=== PATIENT | male | born 1955 | race Caucasian/White ===

== ENCOUNTER 2025-03-25 09:43 | Emergency (ER) | payer MEDICARE, SELFPAY ==
[2025-03-25 09:56] VITALS: BP 155/85; PULSE 64; RESP 18; TEMP 37.1; O2SAT 97; BMI 29.7
--- OUTSIDE RECORDS SUMMARY | 2025-03-25 10:05 | XMS_ITS | Encounter Summary ---
Author Organization [facility] enter Address [address] [place] [address] Phone Care Team Providers Care Bilingual Teacher Assistant Name Role Phone Sd Espinosa Primary Care Provider [phone] Reason for Visit * Reason Comments Appointment Info XR PRIOR needed Encounter Details Date Type Department Care Team ([facility] st Contact Info) Description 02/10/2025 Telephone [facility] - Podiatry Clinic [address] [place] [address] Jean Carlos Gallegos, DPM [address] [place], [place] [id number] Social History Tobacco Use Types Packs/Day Years Used Date Smoking Tobacco: Former Cigarettes 0.7 S tarted: 07/19/2024 Smokeless Tobacco: Current Chew Abuse Risk Answer Date Recorded Are you in an UNsafe relationship? No 02/12/2025 Does your partner/boyfriend or girlfriend hit, kick, hurt, or threaten you? No 02/12/2025 Have you suffered any injury as a result of abuse in the past year? No 02/12/2025 Does your partner/boyfriend or girlfriend ever try to control you by threatening you or your family? No 025 Are you currently being forc ed to engage in sexual activity? No 02/12/2025 Are you being abused or thre atened in your work or home environment? No 02/12/2025 Are you being forced to work? No Is the patient a d ependent adult ? Does not apply 02/12/2025 Do you feel unsafe at home? No 01/20 Has anyone tried to force yo u to sign papers or to use your money against your will? No 02/12/2025 Sex and Gender Information Value Date Recorded Sex Assigned at Not on file Legal Sex Male 7:06 AM CDT Gender Identity Not on file Sexual Orientation Not on file documented as of this encounter Functional Status * Calculated C-SSRS Risk Score (Lifetime/Recent) Answer Date of Assessment Author No Risk Indicated 02/12/2025 10:19 AM CDT System User, Clinical Documentation * [place] Suicide Severity Rating Scale (Screener/Recent Self-Report) Question Answer Date of Assessment Author 1. Wish to be (Past 1 Month) No 02/12/2025 10:19 AM CDT Kathy Stephens, INSURANCE PROFESSIONAL, AAMA 2. Non-Specific Active Suicidal Thoughts (Past 1 Month) No 02/12/2025 10:19 AM CDT Kathy Stephens, INSURANCE PROFESSIONAL, AAMA 6. Suicidal Behavior (Lifetime) No 02/12/2025 10:19 AM CDT Kathy Stephens, INSURANCE PROFESSIONAL, AAMA documented as of this encounter Miscellaneous Notes * Telephone Encounter - Sofie Betancourt - 02/11/2025 8:49 AM CDT This has been completed. * Telephone Encounter - Luann Bhakta RN - 02/10/2025 5:16 PM CDT Patient is currently scheduled to see Dr. Gallegos on , 02/12/25 for a left foot fracture follow-up appointment. Please call the patient and let him know that Dr. Gallegos would like to have him complete xray prior to his appointment. Please update the appointment reason line to include XR PRIOR and then update the appointment arrival time. A left foot xray order has been placed. Thanks! Ena Bhakta Podiatry RN documented in this encounter Plan of Treatment Not on file documented as of this encounter Visit Diagnoses Not on filedocumented in this encounter Additional Health Concerns Assessment Noted Time A fall risk assessment has been complete d for the patient 01/16/2025 11:24 AM CDT documented as of this encounter Care Teams Bilingual Teacher Assistant Relationship Specialty Start Date End Date Sd Espinosa [address] [place] [address] PCP - General Family Practice 10/26/17 documented as of this encounter
--- OUTSIDE RECORDS SUMMARY | 2025-03-25 10:06 | XMS_ITS | Encounter Summary ---
Author Organization [facility] enter Address [address] [place] [address] Phone Care Team Providers Care Casting Chipper Name Role Phone Sd Espinosa Primary Care Provider [phone] Reason for Referral * Radiology Services (Routine) - Pending Review Specialty Diagnoses / Procedures Referred By Ramonaac t Referred To Contact Radiology Procedures [facility] EXT XR STORE ONLY Default, [facility] Provider [place] Phone: tel: Referral ID Status Reason Start Date Expiration Date V isits Requested Visits Authorized [id number] Pending Review 11/18/2024 1 1 Electronically signed by Default, [facility] Provider at 11/18/2024 9:40 AM CDT Encounter Details Date Type Department Care Team (Late st Contact Info) Description 11/18/2024 Ancillary Orders [facility] - Radiology [address] [place] [address] Default, [facility] Provider [place] Social History Tobacco Use Types Packs/Day Years Used Date Smoking Tobacco: Every Day Cigarettes Smokeless Tobacco: Current Chew Abuse Risk Answer Date Recorded Are you in an UNsafe relationship? Not on file 07/30/2023 Does your partner/boyfriend or girlfriend hit, kick, hurt, or threaten you? Not on file 07/30/2023 Have you suffered any injury as a result of abuse in the past year? Not on file 07/30/2023 Does your partner/boyfriend or girlfriend ever try to control you by threatening you or your family? Not on file 024 Are you currently being forc ed to engage in sexual activity? Not on file 07/30/2023 Are you being abused or thre atened in your work or home environment? Not on file 07/30/2023 Are you being forced to work? Not on file Is the patient a d ependent adult ? Does not apply 07/30/2023 Do you feel unsafe at home? Not on file 07/19 Has anyone tried to force yo u to sign papers or to use your money against your will? Not on file 07/30/2023 Sex and Gender Information Value Date Recorded Sex Assigned at Not on file Legal Sex Male 7:06 AM CDT Gender Identity Not on file Sexual Orientation Not on file documented as of this encounter Plan of Treatment Not on file documented as of this encounter Results * [facility] EXT XR STORE ONLY (10/27/2024 12:00 AM CDT) Narrative [facility] RADIOLOGY - 11/18/2024 9:40 AM CDT This is an external imaging result scanned into the patient's chart. This exam was not read by [facility] internal Reading Physicians. us [facility] Provider Default [facility] RAD EXTERNAL IMAGES Fi nal Result [facility] RADIOLOGY documented in this encounter Visit Diagnoses Not on filedocumented in this encounter Care Teams Casting Chipper Relationship Specialty Start Date End Date Sd Espinosa [address] [place] [address] PCP - General Family Practice 10/26/17 documented as of this encounter
--- OUTSIDE RECORDS SUMMARY | 2025-03-25 10:06 | XMS_ITS | Encounter Summary ---
Author Organization [facility] [employer] enter Address [address] [place] [address] Phone Care Team Providers Care Gun Fitter Name Role Phone Sd Espinosa Primary Care Provider [phone] Reason for Referral * Radiology Services (Routine) - Closed Specialty Diagnoses / Procedures Referred By Contac t Referred To Contact Radiology Diagnoses Localized edema Procedures [facility] US VENOUS DOPPLER LEG RIGHT ([id number]) Sd Espinosa [address] [place] [id number] Phone: tel:[phone] fax: Referral ID Status Reason Start Date Expiration Date Visits Re quested Visits Authorized [id number] Closed 03/28/2023 1 1 REFINERY SUPERVISOR Encounter Details Date Type Department Care Team (Late st Contact Info) Description 03/28/2023 Ancillary Orders [facility] - Radiology [place] [address] [place] [address] Sd Espinosa [address] [place] [id number] Social History Tobacco Use Types Packs/Day Years Used Date Smoking Tobacco: Every Day Cigarettes Smokeless Tobacco: Current Chew Sex and Gender Information Value Date Recorded Sex Assigned at Not on file Legal Sex Male 7:06 AM CDT Gender Identity Not on file Sexual Orientation Not on file documented as of this encounter Plan of Treatment Not on file documented as of this encounter Results * [facility] US VENOUS DOPPLER LEG RIGHT ([id number]) (03/28/2023 4:06 PM LEAD REFINERY SUPERVISOR) Anatomical Region Laterality Modality lower extremity Ultrasound 03/28/2023 4:19 PM LEAD REFINERY SUPERVISOR Impressions 03/28/2023 4:19 PM LEAD REFINERY SUPERVISOR IMPRESSION: 1. Negative for DVT right leg. Signed By: Jacob Remark on 16:19:04 Narrative 03/28/2023 4:19 PM LEAD REFINERY SUPERVISOR PROCEDURE: [facility] US VENOUS DOPPLER LEG RIGHT ([id number]) CLINICAL INDICATION: edema of lower extremity COMPARISON: No comparison available. FINDINGS: Ultrasound examination of the right leg demonstrates normal color Doppler venous flow, compressibility, and augmentation in the deep veins of the right leg. No findings or changes for acute deep venous thrombosis right leg. Procedure Note Remark, MD Jacob - 03/28/2023 PROCEDURE: [facility] US VENOUS DOPPLER LEG RIGHT ([id number]) CLINICAL INDICATION: edema of lower extremity COMPARISON: No comparison available. FINDINGS: Ultrasound examination of the right leg demonstrates normal color Doppler venous flow, compressibility, and augmentation in the deep veins of the right leg. No findings or changes for acute deep venous thrombosis right leg. IMPRESSION IMPRESSION: 1. Negative for DVT right leg. Signed By: Jacob Remark on 16:19:04 Sd Espinosa [facility] US Final Result documented in this encounter Visit Diagnoses Diagnosis Localized edema- Primary Edema Localized edema Edema documented in this encounter Care Teams Gun Fitter Relationship Specialty Start Date End Date Sd Espinosa [address] [facility] [place] [address] PCP - General Family Practice 10/26/17 documented as of this encounter
--- OUTSIDE RECORDS SUMMARY | 2025-03-25 10:06 | XMS_ITS | Clinical Summary ---
Author Organization [employer] Address [address] [place] [address] Care Team Providers Care Speed Reading Teacher Name Role Phone Sd Espinosa MD Primary Care Provider [phone] Source Comments If you need additional information that is not available on Care Everywhere, please contact our Medical Records Department during business hours (Sunday - Sunday, 8 am - 5 pm) at . During nonbusiness hours, please contact our Trauma and Emergency Center at .[facility] and [facility] Allergies No known active allergies Medications * Medications may not be up to date as of this document. Always verify current medications with the patient. lisinopril (PRINIVIL;ZESTR IL-EQUIVALENT) 10 mg tablet Take 10 mg by mouth bedtime. Active simvastatin (ZOCOR) 20 mg tablet Take 20 mg by mouth every evening. Active aspirin EC 81 mg enteric coated tablet Take 81 mg by mouth bedtime. Active insulin NPH-regular (NOVOLIN;HUMULI N 70-30) pen injection Inject under skin 2 times daily before meals Takes 35-40 units in the AMs and 30 units in PM. Active PEG electrolyte (GOLYTELY) 236-22.74-6.74 -5.86 gram solutionIndicat ions:bowel evacuation Follow prep instructions given in clinic. Call with questions. For: Bowel Evacuation. 4000 mL 8 Active Active Problems Problem Noted Date Diagnosed Date H/O adenomatous polyp of colon 11/02/2017 Benign essential HTN Type 2 diabetes mellitus wit hout complication, with long-term current use of insulin Hyperlipidemia Encounters Date Type Department Care Team Description 12/31/2024 Interface [facility] [address] [place] [address] Octaviano Ceja MD 12/31/2024 Travel from Last 3 Months Surgical History Surgery Date Site/Laterality Comments TYMPANOSTOMY Left tube COLONOSCOPY 08/18/2005 Zach @ [facility]. hyperplastic COLONOSCOPY 10/26/2017 repeat in 5 years-[facility] Medical History Medical History Date Comments Sciatica Hyperlipidemia Benign essential HTN Humerus fracture 09/24/1995 right mid shaft closed reduction Nondisplaced fracture 06/04/1994 L2-3 and a vulsion of L-4 Ketoacidosis 08/12/2012 hospitalized @ [facility] Alcohol abuse Diabetes mellitus (*) Family History Medical History Relation Name Comments No Major Problems Brother No Major Problems Daughter Lung Disease Father Hypercholesterolemia Mother Diabetes Paternal Grandfather type 2 Crohn's Disease Sister 1 No Major Problems Sister 2 No Major Problems Sister 3 No Major Problems Sister 4 No Major Problems Son Relation Name Status Comments Brother Alive Daughter Alive Father Mother Alive Paternal Grandfather Sister 1 Alive Sister 2 Alive Sister 3 Alive Sister 4 Alive Son Alive Social History Tobacco Use Types Packs/Day Years Used Date Smoking Tobacco: Every Day Cigarettes 0.5 42 Smokeless Tobacco: Current Chew Comments:and 3 cans of chew per week Alcohol Use Standard Drinks/Week Comments Yes 6 (1 standard drink = 0.6 oz pur e alcohol) H/O of abuse Sex and Gender Information Value Date Recorded Sex Assigned at Not on file 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 Gender Identity Not on file Sexual Orientation Not on file 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 Not on file Not on file Not on fbaian e Obstetrics History Last Filed Vital Signs Vital Sign Reading Time Taken Comments Blood Pressure 140/86 10/08/2017 2:42 PM CDT Pulse 100 10/08/2017 2:40 PM CDT Temperature - - Respiratory Rate 16 10/08/2017 2:40 PM CDT Oxygen Saturation - - Inhaled Oxygen Concentration - - Weight 99.1 kg (218 lb 8 oz) 10/08/2017 2:40 PM CDT Height 177.8 cm (5' 10 ) 10/08/2017 2:40 PM CDT Body Mass Index 31.35 10/08/2017 2:40 PM CDT Plan of Treatment Health Maintenance Due Date Last Done Comments CBC (Diabetes) 1955 Creatinine/eGFR 1955 Hepatitis C Screening 1955 Lipid Monitoring 1955 Potassium 1955 Sodium 1955 Depression/Anxiety PHQ4 1967 ALT Chronic Disease Monitoring 1973 Albumin to Creatinine Ratio 1973 Diabetes Education 1973 Diabetic Eye Exam 1973 Diabetic Foot Exam [address] Colonography 2000 Cologuard 2000 FIT Test 2000 Sigmoidoscopy 2000 RSV Vaccines (1 - Risk 50-74 years 1-dose series) 2005 Shingles Vaccine (Zoster) (2 of 2) 04/05/2021 02/08/2021 Colonoscopy 10/26/2022 10/26/2017 Colorectal Cancer Screening 10/26/2022 COVID-19 Vaccine (4 - season) 2025 04/19/2021, 09/22/2020, 08/25/2020 Influenza Vaccine (#1) 2025 , 04/06/2022, 02/08/2021, Additional history exists Pneumococcal Vaccine: 50+ Years (3 of 3 - PCV20 or PCV21) 02/08/2026 02/08/2021, 12/02/2015, 08/13/2012 DTaP/Tdap/Td Vaccine (3 - Td or Tdap) 03/07/2033 03/07/2023, 11/07/2010, 08/10/2004 Pneumococcal Vaccine: Pediatrics (0 to 5 Years) and At-Risk Patients (6 to 49 Years) Discontinued 02/08/2021, 12/02/2015, 08/13/2012 HEPATITIS A Aged Out No longer eligi ble based on patient's age to complete this topic HIB Vaccine Aged Out No longer eligi ble based on patient's age to complete this topic HPV Vaccine Aged Out No longer eligi ble based on patient's age to complete this topic Hepatitis B Vaccine Aged Out No longe r eligible based on patient's age to complete this topic Meningococcal B Vaccine Aged Out No l onger eligible based on patient's age to complete this topic Meningococcal Vaccine (MenACWY) Aged Out No longer eligible based on patient's age to complete this topic Rotavirus Vaccine Aged Out No longer eligible based on patient's age to complete this topic Insurance [facility] MEDICARE PFFS/HMO - LOCAL PLAN Care Teams Speed Reading Teacher Relationship Specialty Start Date End Date Sd Espinosa MD [address] [place], [place] [id number] [phone] PCP - General Family Medicine 09/13/17
--- OUTSIDE RECORDS SUMMARY | 2025-03-25 10:06 | XMS_ITS | Clinical Summary ---
Author Organization [employer] enter Address [address] [place] [address] Phone Care Team Providers Care Caretaker Name Role Phone Sd Espinosa Primary Care Provider [phone] Source Comments This disclosure is being made pursuant to the Care Everywhere program,applicable federal and state laws, and may not contain all informationavailable regarding this patient.[facility] and [facility] Practices Allergies No known active allergies Medications aspirin 81 mg enteric coated tablet Take 81 mg by mouth at bedtime. Active insulin nph-regular (HumuLIN 70/30) 100 unit/mL (3 mL) injection pen Inject under skin 2 times daily before meals, 30-40 units in the am and 30 units in pm Active lisinopril 10 mg tablet Take 10 mg by mouth at bedtime. Active simvastatin 20 mg tablet Take 20 mg by mouth every evening. Active BASAGLAR KWIKPEN 100 unit/mL (3 mL) injection pen Inject 34 units subcutaneously daily. INJECT 34 UNITS SUBCUTANEOUSLY IN THE MORNING 5 Active NovoLOG Flexpen U-100 Insulin 100 unit/mL (3 mL) injection pen Inject 10 units subcutaneously 3 times daily before meals. INJECT 10 UNITS SUBCUTANEOUSLY THREE TIMES DAILY FOR DIABETES 5 Active furosemide 40 mg tablet Take 1 tablet (40 mg total) by mouth daily. 5 Active FREESTYLE MADHU 2 SENSOR FREESTY LIBR KIT 2 SENSOR 5 Active atorvastatin (LIPITOR) 40 mg tablet Take 1 tablet (40 mg total) by mouth every evening. 5 Active amLODIPine (NORVASC) 5 mg tablet Take 1 tablet (5 mg total) by mouth daily. 5 Active FREESTYLE AMDHU 2 PLUS SENSOR 5 Active Active Problems Problem Noted Date Diagnosed Date Benign essential HTN 11/18/2024 Cholesterolosis of gallbladder 11/18/2024 Hyperlipidemia 11/18/2024 Hypertension 11/18/2024 Type 2 diabetes mellitus wit hout complication, with long-term current use of insulin 11/18/2024 H/O adenomatous polyp of colon 11/02/2017 Encounters Date Type Department Care Team Description 02/12/2025 10:20 AM CDT Office Visit [facility] - Podiatry Clinic [address] [place] [address] Jean Carlos Gallegos, DPM 02/12/2025 9:45 AM CDT - 02/12/2025 11:59 PM CDT Hospital Encounter [facility] - Radiology XRAY [address] [place] [address] Jean Carlos Gallegos, DPM Discharge Disposition: Home or Self Care 02/12/2025 Travel 02/10/2025 Telephone [facility] - Podiatry Clinic [address] [place] [id number] Jean Carlos Gallegos, DPM 01/20/2025 Telephone [facility] - Orthopedic Clinic [address] [place] [address] Jean Carlos Gallegos, DPM 01/16/2025 11:20 AM CDT Office Visit [facility] - Podiatry Clinic [address] [place] [address] Jean Carlos Gallegos, DPM 01/16/2025 Travel 01/16/2025 Telephone [facility] - Podiat[facility] [address] [place] [address] Jean Carlos Gallegos, DPM 12/30/2024 9:00 AM CDT Office Visit [facility] - Podiatry Clinic [address] [place] [address] Jean Carlos Gallegos, DPM 12/30/2024 8:25 AM CDT - 12/30/2024 11:59 PM CDT Hospital Encounter [facility] - Radiology XRAY [address] [place] [address] Jean Carlos Gallegos, DPCharles Discharge Disposition: Home or Self Care 12/30/2024 Travel from Last 3 Months Immunizations Immunization Administration Dates Next Due COVID-19, mRNA (MODERNA) 100mcg/0.5mL 04/19/2021 ,09/22/2020,08/25/2020 Influenza 02/19/2014 Influenza, PF 02/20/2024 Influenza, quadrivalent PF 04/06/2022,02/08/2021 Pneumococcal Conjugate, PCV13 (Prevnar 13) 02/08 Pneumococcal Polysaccharide, PPSV23 (Pneumovax 23) 12/02/2015 Td, adsorbed 08/10/2004 Td, adsorbed adult PF 03/07/2023 Tdap 11/07/2010 Zoster, recombinant (Shingrix) 02/08/2021 Social History Tobacco Use Types Packs/Day Years Used Date Smoking Tobacco: Former Cigarettes 0.7 S tarted: 07/19/2024 Smokeless Tobacco: Current Chew Tobacco Cessation:Ready to Q uit: Not Asked; Counseling Given: Not Answered Abuse Risk Answer Date Recorded Are you [...] on file Sexual Orientation Not on file Last Filed Vital Signs Vital Sign Reading Time Taken Comments Blood Pressure 162/88 10/26/2017 9:48 AM CDT Pulse 65 10/26/2017 9:48 AM CDT Temperature 36 C (96.8 F) 02/12/2025 10:18 AM CDT Respiratory Rate 16 10/26/2017 9:48 AM CDT Oxygen Saturation 96% 10/26/2017 9:48 AM CDT Inhaled Oxygen Concentration - - Weight 91.2 kg (201 lb 1 oz) 11/28/2024 9:01 AM CDT Height 176.5 cm (5' 9.49 ) 11/28/2024 9:01 AM CD T Body Mass Index 29.28 11/28/2024 9:01 AM CDT Plan of Treatment Health Maintenance Due Date Last Done Comments BACKEND JAVA DEVELOPER + eGFR 1955 DIABETIC: Hemoglobin A1C 1955 DIABETIC: Microalbumin/Creat inine Ratio 1955 Annual Physical Visit 1958 HCV Screening 1973 Lipid Disorder Screening 1976 CT Colonography 06/30/2000 FIT-DNA 06/30/2000 FIT 06/30/2000 FOBT 06/30/2000 Flex Sigmoidoscopy 06/30/2000 Prostate Cancer Screening / Surveillance 06/30/2005 RSV Vaccine (1 - Risk 50-74 years 1-dose series) 2005 AAA Screening 2020 Zoster Vaccine (2 of 2) 04/05/2021 02/08/2021 DIABETIC: Foot Exam 11/18/2024 DIABETIC: Retinal Eye Exam 11/18/2024 [id number] Vaccine ( season) 2025 04/19/2021, 09/22/2020, 08/25/2020 Influenza Vaccine: Seasonal (#1) 01/19/2025 02/20/2024, 04/06/2022, 02/08/2021, Additional history exists Pneumococcal Vaccine (3 of 3 - PCV20 or PCV21) 02/08/2026 02/08/2021, 12/02/2015 Colonoscopy 10/27/2027 10/26/2017 Colorectal Screening 10/27/2027 Tetanus Diphtheria Pertussis (3 - Td or Tdap) 03/07/2033 03/07/2023, 11/07/2010, 08/10/2004 Procedures Procedure Name Priority Date/Time Associated Diagnosis Comments [facility] XR FOOT MIN 3 VIEWS LEFT ([id number]) Routine 02/12/2025 10:13 AM CDT Fracture follow-up Foot pain, left CC XR FOOT MIN 3 VIEWS LEFT ([id number]) Routine 12/30/2024 8:36 AM CDT Foot injury, left, subsequent encounter Lisfranc's dislocation, left, subsequent encounter from Last 3 Months Results * CC XR FOOT MIN 3 VIEWS LEFT ([id number]) (02/12/2025 10:13 AM CDT) Only the most recent of2 resultswithin the time period is included. Anatomical Region Laterality Modality foot Computed Radiogr aphy 02/12/2025 10:1 8 AM CDT Impressions 02/12/2025 10:18 AM CDT IMPRESSION: 1. Stable alignment and appearance of healing fracture is seen at the base of the left second metatarsal. Signed By: Jacob Remark on 10:18:03 Narrative 02/12/2025 10:18 AM CDT PROCEDURE: CC XR FOOT MIN 3 VIEWS LEFT ([id number]) CLINICAL INDICATION: Left Foot, 2nd Met. Base Fracture FU COMPARISON: DX FOOT 12/30/2024 FINDINGS: Healing fracture is seen in the base of the left second metatarsal. Stable alignment when compared to prior study. Procedure Note Remark, MD Jacob - 02/12/2025 PROCEDURE: CC XR FOOT MIN 3 VIEWS LEFT ([id number]) CLINICAL INDICATION: Left Foot, 2nd Met. Base Fracture FU COMPARISON: DX FOOT 12/30/2024 FINDINGS: Healing fracture is seen in the base of the left second metatarsal. Stable alignment when compared to prior study. IMPRESSION IMPRESSION: 1. Stable alignment and appearance of healing fracture is seen at the base of the left second metatarsal. Signed By: Jacob Remark on 10:18:03 us Jean Carlos Gallegos DPM [facility] RAD GEN Final Res ult from Last 3 Months Insurance [place] MEDIC[place]VANTAGE Care Teams Caretaker Relationship Specialty Start Date End Date Sd Espinosa [address] [place] [address] PCP - General Family Practice 10/26/17
--- OUTSIDE RECORDS SUMMARY | 2025-03-25 10:06 | XMS_ITS | Referral Summary ---
Author Organization [facility] enter Address [address] [place] [address] Phone Care Team Providers Care Bar Captain Name Role Phone Sd Espinosa Primary Care Provider [phone] Source Comments This disclosure is being made pursuant to the Care Everywhere program,applicable federal and state laws, and may not contain all informationavailable regarding this patient.[facility] Encounters Date Type Department Care Team Description 02/12/2025 Travel 02/12/2025 9:45 AM CDT - 02/12/2025 11:59 PM CDT Hospital Encounter [facility] - Radiology XRAY [address] [place] [id number] Jean Carlos Gallegos, DPM Discharge Disposition: Home or Self Care 02/12/2025 10:20 AM CDT Office Visit [facility] Podiatry Clinic [address] [place] [phone] Jean Carlos Gallegos, DPM 02/10/2025 Telephone [facility] [address] [place] [phone] Jean Carlos Gallegos, DPM 01/20/2025 Telephone [facility] - Orthopedic Clinic [address] [place] [phone] Jean Carlos Gallegos, DPM 01/16/2025 Travel 01/16/2025 11:20 AM CDT Office Visit [facility] [address] [place] [phone] Jean Carlos Gallegos, EDWARD 01/16/2025 Telephone [facility] [address] [place] [address] Jean Carlos Gallegos DPM 12/30/2024 Travel 12/30/2024 8:25 AM CDT - 12/30/2024 11:59 PM CDT Hospital Encounter [facility] - Radiology XRAY [address] [place] [address] Jean Carlos Gallegos, EDWARD Discharge Disposition: Home or Self Care 12/30/2024 9:00 AM CDT Office [facility] [address] [place] [address] Jean Carlos Gallegos, EDWARD from Last 3 Months Allergies No known active allergies Medications aspirin [...] mouth daily. 5 Active FREESTYLE MADHU 2 PLUS SENSOR 5 Active Active Problems Problem Noted Date Diagnosed Date Benign essential HTN 11/18/2024 Cholesterolosis of gallbladder 11/18/2024 Hyperlipidemia 11/18/2024 Hypertension 11/18/2024 Type 2 diabetes mellitus wit hout complication, with long-term current use of insulin 11/18/2024 H/O adenomatous polyp of colon 11/02/2017 Immunizations Immunization Administration Dates Next Due COVID-19, [...] 11/28/2024 9:01 AM CDT Plan of Treatment Not on file Procedures Procedure Name Priority Date/Time Associated Diagnosis Comments CC XR FOOT MIN 3 VIEWS LEFT (82481) Routine 02/12/2025 10:13 AM CDT Fracture follow-up Foot pain, left CC XR FOOT MIN 3 VIEWS LEFT ([id number]) Routine 12/30/2024 8:36 AM CDT Foot injury, left, subsequent encounter Lisfranc's dislocation, left, subsequent encounter from Last 3 Months Results * UICC XR FOOT MIN 3 VIEWS LEFT ([id number]) (02/12/2025 10:13 AM CDT) Only the most recent of2 resultswithin the time period is included. Anatomical Region Laterality Modality foot Computed Radiogr aphy 02/12/2025 10:1 8 AM CDT Impressions 02/12/2025 10:18 AM CDT IMPRESSION: 1. Stable alignment and appearance of healing fracture is seen at the base of the left second metatarsal. Signed By: Jacob Newberry on 10:18:03 Narrative 02/12/2025 10:18 AM CDT PROCEDURE: UICC XR FOOT MIN 3 VIEWS LEFT ([id number]) CLINICAL INDICATION: Left Foot, 2nd Met. Base Fracture FU COMPARISON: DX FOOT 12/30/2024 FINDINGS: Healing fracture is seen in the base of the left second metatarsal. Stable alignment when compared to prior study. Procedure Note Remark, MD Jacob - 02/12/2025 PROCEDURE: UICC XR FOOT MIN 3 VIEWS LEFT ([id number]) CLINICAL INDICATION: Left Foot, 2nd Met. Base Fracture FU COMPARISON: DX FOOT 12/30/2024 FINDINGS: Healing fracture is seen in the base of the left second metatarsal. Stable alignment when compared to prior study. IMPRESSION IMPRESSION: 1. Stable alignment and appearance of healing fracture is seen at the base of the left second metatarsal. Signed By: Jacob Remark on 10:18:03 Jean Carlos WALKERM CC RAD GEN Final Res ult from Last 3 Months Insurance [place] MED[place]ANTAGE Care Teams Bar Captain Relationship Specialty Start Date End Date Sd Espinosa NPOleksandr: [phone] [address] [place] [address] PCP - General Family Practice 10/26/17
[2025-03-25 10:33] VITALS: BP 131/82; PULSE 62; RESP 16; O2SAT 94
--- NOTE | 2025-03-25 11:01 | XR_ITS ---
WS: [id number] Chest with left rib detail, 4 views, 03/25/2025 Clinical Data: fall off horse, R posterolateral back pain to lower rib area Comparison: None. Findings: The lungs show no nodules, masses, or effusions. The heart is slightly enlarged. No pneumonia or pneumothorax is seen. The aortic arch and descending thoracic aorta show tortuosity. The ribs are intact. No rib fractures seen. No subcutaneous emphysema is present. XR/XR ribs LT mn 3V w CXR1V [id number] Impression: 1. Cardiomegaly and atherosclerosis. 2. Negative left rib detail.
[2025-03-25] MEDS: morphine 4 mg/mL SDV 1 mL IVP (11:29)
[2025-03-25 11:31] LABS: Hematocrit 45.7 % (37-53); Hemoglobin 15.60 g/dL (11.27-16.99); Mean Corpuscular HGB Conc 34.1 g/dL (30-55); Mean Corpuscular Hemoglobin 30.3 pg (27-33); Mean Corpuscular Volume 88.7 fl (82-101); Nucleated Red Blood Cells % 0 %; Platelet Count 258 10^3/cmm (157-399); Red Blood Count 5.15 10^6/uL (3.85-5.65); White Blood Count 9.31 10^3/uL (3.29-11.43)
--- NOTE | 2025-03-25 11:34 | ECG_ITS ---
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 Measurements Intervals [place] Rate: 67 P: 38 NC: 167 QRS: -34 QRSD: 146 T: 17 QT: 439 QTc: 465 Interpretive Statements SINUS RHYTHM WITH OCCASIONAL VENTRICULAR PREMATURE COMPLEXES INDETERMINATE AXIS RIGHT BUNDLE BRANCH BLOCK [120+ ms QRS DURATION, UPRIGHT V1, 40+ ms S IN I/aVL/V4/V5/V6] No previous ECG available for comparison Electronically Signed On 03-25-2025 23:40:58 TRAFFIC TECHNICIAN by Keegan Patterson M.D. [email or web address]
--- NOTE | 2025-03-25 11:37 | W.ED.FALL ---
HPI - Fall General: Chief Complaint: Fall Stated Complaint: fell 2 days ago, back pain Time Seen by Provider: 03/25/25 10:03 History of Present Illness: 69-year-old male past medical history significant for insulin-dependent diabetes, hypertension, hyperlipidemia, presenting to the emergency department with persistent left-sided mid to low back pain since a fall off a horse on Sunday, immediate onset, also reports that after falling off the horse he did have an episode of hypoglycemia to the 40s secondary to missed a meal and had another 2 falls due to unsteadiness, reports his most recent fingerstick was 200 earlier today and then 110, he denies any chest pain palpitations or loss of consciousness, denies vomiting, denies head or neck pain or trauma. Related Data Home Medications ?Medication ?Instructions ?Recorded ?Confirmed amlodipine 5 mg tablet 5 mg PO DAILY 03/25/25 03/25/25 atorvastatin 40 mg tablet 40 mg PO DAILY 03/25/25 03/25/25 furosemide 40 mg tablet 40 mg PO DAILY 03/25/25 03/25/25 insulin aspart U-100 100 unit/mL 10 unit SUBCUT TID 03/25/25 03/25/25 (3 mL) subcutaneous pen (Novolog FlexPen U-100 Insulin aspart) insulin glargine 100 unit/mL (3 34 unit SUBCUT QAM 03/25/25 03/25/25 mL) subcutaneous pen (Basaglar KwikPen U-100 Insulin) lisinopril 20 mg tablet 40 mg PO DAILY 03/25/25 03/25/25 Previous Rx's ?Medication ?Instructions ?Recorded lidocaine 5 % topical patch See Rx Instructions topical 03/25/25 .COMPLEX #30 ea oxycodone-acetaminophen 5 mg-325 1 tab PO Q6H PRN pain 3 days #12 03/25/25 mg tablet (Endocet) tabs Allergies Allergy/AdvReac Type Severity Reaction Status Date / Time No Known Allergies Allergy Verified 03/25/25 10:01 Physical Exam Narrative: EXAM NARRATIVE: Gen: A&Ox4, no acute distress, nontoxic appearing HEENT: Normocephalic, atraumatic, no scleral icterus, external ears normal, moist mucous membranes Neck: Supple, full range of motion, no observable masses Lungs: No Respiratory distress, Lungs clear to auscultation bilaterally no rales, rhonchi, wheezing CV: Regular rate and rhythm, no murmur, no pitting edema to lower extremities bilaterally Abdomen: Soft, nondistended, nontender to palpation MSK: No joint swelling, FROM all 4 extremities, there is significant tenderness to palpation to the left paralumbar region to the posterolateral aspect of the lower ribs on the left, no bruising or skin deformity, no midline tenderness palpation of the thoracic or lumbar spine Skin: No rashes, petechiae, lesions. Normal color per patient. Neuro: Alert and oriented, no slurred speech, sensation and strength grossly intact all 4 extremities Psych: Appropriate for situation. Course Reevaluation(s): Reevaluation #1: Patient reevaluated at this time, pain is somewhat improved, chest x-ray negative for displaced rib fracture to the affected side, blood work showing no significant evidence of metabolic derangements LUIS CARLOS or thyroid dysfunction and heart rate in the 60s with appropriate peripheral perfusion in the ED, blood sugar adequate, stable for discharge with multimodal pain control, return precautions Time: 14:08 Vital Signs: Vital signs: Vital Signs Temperature 98.7 F 03/25/25 09:56 Pulse Rate 61 03/25/25 13:02 Respiratory Rate 18 03/25/25 13:02 Blood Pressure 131/82 03/25/25 10:33 Pulse Oximetry 98 03/25/25 13:02 Oxygen Delivery Me thod Room Air 03/25/25 13:02 MDM - Fall Medical Decision Making 69-year-old male history hypertension insulin-dependent diabetes presenting the emergency department multiple falls sustained on Sunday, patient predominantly sustained trauma to the left side of the lower back/posterolateral inferior rib region with localized area of maximal tenderness to the lowest rib, there is no midline spinal tenderness palpation or swelling to the skin on exam, neurovascular function of the lower extremities is intact, patient does appear borderline bradycardic with a heart rate around 60 given his underlying atherosclerotic risk factors and recurrent falls will obtain cardiac screen to rule out LUIS CARLOS, arrhythmia, plan for pain control and reassess, rib series to rule out displaced rib fracture. Lab Data Labs with mild hyperglycemia 156, normal creatinine, normal electrolytes, no LUIS CARLOS or anemia, normal TSH and free T4 03/25/25 11:24 03/25/25 11:24 Radiology Impressions Ribs X-Ray 03/25/25 11:01 Impression: 1. Cardiomegaly and atherosclerosis. 2. Negative left rib detail. Laboratory Results WBC 9.31 10^3/uL (3.29-11.43) 03/25/25 11: RBC 5.15 10^6/uL (3.85-5.65) 03/25/25 11:24 Hgb 15.60 g/dL (11.27-16.99) 03/25/25 11:24 Hct 45.7 % (37-53) 03/25/25 11:24 MCV 88.7 fl (82-101) 03/25/25 11:24 MCH 30.3 pg (27-33) 03/25/25 11:24 MCHC 34.1 g/dL (30-55) 03/25/25 11:24 RDW 13.4 % (12.1-15.1) 03/25/25 11:24 Plt Count 258 10^3/cmm (157-399) 03/25/25 11:24 MPV 9.9 fL (7.4-10.4) 03/25/25 11:24 Neut % (Auto) 68.0 % 03/25/25 11:24 Lymph % (Auto) 19.0 % 03/25/25 11:24 Ness % (Auto) 9.6 % 03/25/25 11:24 Eos % (Auto) 2.5 % 03/25/25 11:24 Baso % (Auto) 0.3 % 03/25/25 11:24 Neut # (Auto) 6.33 10^3/uL (1.8-7.7) 03/25/25 11:24 Lymph # (Auto) 1.8 10^3/uL (0.8-4.8) 03/25/25 11:24 Ness # (Auto) 0.9 10^3/uL (0.2-0.9) 03/25/25 11:24 Eos # (Auto) 0.2 10^3/uL (0.0-0.8) 03/25/25 11:24 Baso # (Auto) 0.0 10^3/uL (0.0-0.1) 03/25/25 11:24 Nucleated RBC % (auto) 0 % 03/25/25 11:24 Nucleated RBCs # 0.0 /100WBC 03/25/25 11:24 Sodium 140 mmol/L (136-145) 03/25/25 11:24 Potassium 4.0 mmol/L (3.5-5.1) 03/25/25 11:24 Chloride 102 mmol/L (98-107) 03/25/25 11:24 Carbon Dioxide 27 mmol/L (22-29) 03/25/25 11:24 Anion Gap 15.0 (5-19) 03/25/25 11:24 BUN 14 mg/dL (8-23) 03/25/25 11:24 Creatinine 0.7 mg/dL (0.7-1.2) 03/25/25 11:24 GFR Calculation 111.8 mL/min (90-130) 03/25/25 11:24 Glucose 156 mg/dL (65-115) H 03/25/25 11:24 POC Glucose 131 mg/dL (70-110) H 03/25/25 11:37 Calculated Osmolality 294 mOsm/kg (285-295) 03/25/25 11:24 Calcium 8.7 mg/dL (8.5-10.5) 03/25/25 11:24 Magnesium 1.9 mg/dL (1.7-2.3) 03/25/25 11:24 TSH 1.26 uIU/mL (0.27-4.20) 03/25/25 11:24 Free T4 1.33 ng/dL (0.82-1.77) 03/25/25 11:24 All radiology interpretation(s) finalized by discharge ED provider radiology interpretation(s): Rib series on the left negative for displaced rib fracture or pneumothorax EKG Data EKG 1: I personally reviewed and interpreted this EKG as follows: EKG interpretation date: 03/25/25 EKG interpretation time: 11:40 Interpretation: EKG performed at 11:34 AM showing sinus rhythm at 67 bpm with occasional premature ventricular complexes, no STEMI, borderline left axis deviation, right bundle branch block, QTc 454 ms Discharge Plan Discharge Patient Disposition: Home Clinical Impression: Contusion of rib on left side Qualifiers: Encounter type: initial encounter Qualified Code(s): S29.8XXA - Other specified injuries of thorax, initial encounter Low back strain Qualifiers: Encounter type: initial encounter Qualified Code(s): S39.012A - Strain of muscle, fascia and tendon of lower back, initial encounter Condition: Stable Prescriptions: New oxycodone-acetaminophen [Endocet] 5-325 mg tablet 1 tab PO Q6H PRN (Reason: pain) 3 Days Qty: 12 0RF lidocaine 5 % adhesive patch,medicated See Rx Instructions .ROUTE .COMPLEX Qty: 30 0RF Rx Instructions: leave on most painful area for up to 12 hrs No Action furosemide 40 mg tablet 40 mg PO DAILY atorvastatin 40 mg tablet 40 mg PO DAILY lisinopril 20 mg tablet 40 mg PO DAILY amlodipine 5 mg tablet 5 mg PO DAILY insulin aspart U-100 [Novolog FlexPen U-100 Insulin] 100 unit/mL (3 mL) insulin pen 10 unit SUBCUT TID Rx Instructions: +sliding scale insulin glargine [Basaglar KwikPen U-100 Insulin] 100 unit/mL (3 mL) insulin pen 34 unit SUBCUT QAM Discharge Orders: Discharge ED (Routine); Ordered 03/25/25 Ordered By: Jay Paris Patient Instructions: Opioid Safety, Pain Management, Patient Portal & Rajwinder Instructions, Rib Contusion (ED) Print Language: Belarusian Coding Level of Care Code ED Finisher Tailor Apprentice for Luz Michele
[2025-03-25 11:59] LABS: Blood Urea Nitrogen 14 mg/dL (8-23); Calcium 8.7 mg/dL (8.5-10.5); Carbon Dioxide 27 mmol/L (22-29); Chloride 102 mmol/L (98-107); Creatinine Clr Calc Pharmacy 100.2845; Free T4 Free Thyroxine 1.33 ng/dL (0.82-1.77); Glucose 156 mg/dL (65-115); Magnesium 1.9 mg/dL (1.7-2.3); Osmolality Calculated 294 mOsm/kg (285-295); Sodium 140 mmol/L (136-145); Thyroid Stimulating Hormone 1.26 uIU/mL (0.27-4.20)
[2025-03-25 12:25] LABS: Anion Gap 15.0 (5-19); Potassium 4.0 mmol/L (3.5-5.1)
[2025-03-25 13:02] VITALS: PULSE 61; RESP 18; O2SAT 98
== END 2025-03-25 14:19 | disposition home or self-care (01) ==
PROVIDERS: Emergency Provider Student in an Organized Health Care Education/Training Program
DX: S29.8XXA Other specified injuries of thorax, initial encounter (principal); S39.012A Strain of muscle, fascia and tendon of lower back, initial encounter; Z79.4 Long term (current) use of insulin; E11.9 Type 2 diabetes mellitus without complications; I10 Essential (primary) hypertension; E78.5 Hyperlipidemia, unspecified; V80.010A Animal-rider injured by fall from or being thrown from horse in noncollision accident, initial encounter
CPT/HCPCS: 36416; 71101; 80048; 82962; 83735; 84439; 84443; 85025; 93005; 96374; 96375; 99285; J1885; J2270; J9999